=== PATIENT | female | born 1975 | race Caucasian/White ===

== ENCOUNTER 2020-12-27 09:31 | Emergency (ER) | payer OTHER ==
[~2020-12-27] VITALS: Ht 167.6 cm; Wt 86.2 kg
[2020-12-27] MEDS ORDERED: CYMBALTA30 MG (09:40)
[2020-12-27] MEDS ORDERED: KETO10TA2 PO (12:29)
[2020-12-27] MEDS ORDERED: NORFLEX100MG PO (12:29)
== END 2020-12-27 12:55 | disposition home or self-care (01) ==
LOC: ER 09:31
DX: M54.2 Cervicalgia (principal)